=== PATIENT | female | born 1945 | race Caucasian/White ===

== ENCOUNTER 2022-03-12 07:26 | Emergency (ER) | payer OTHER, SELFPAY ==
[2022-03-12 07:31] VITALS: BP 159/79; PULSE 60; RESP 16; TEMP 36.5; O2SAT 100; BMI 24.1
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
[2022-03-12 08:53] VITALS: BP 166/82; PULSE 65; RESP 16; O2SAT 99
[2022-03-12 10:06] VITALS: BP 132/72; PULSE 78; O2SAT 98
== END 2022-03-12 10:08 | disposition home or self-care (01) ==
PROVIDERS: Emergency Provider Family Medicine; PCP Nurse Practitioner Family
DX: M54.2 Cervicalgia (principal); V48.0XXA Car driver injured in noncollision transport accident in nontraffic accident, initial encounter
CPT/HCPCS: 70450; 72125; 99284

== ENCOUNTER 2022-07-31 04:29 | Emergency (ER) | payer OTHER, SELFPAY ==
[2022-07-31 04:38] VITALS: BP 180/101; PULSE 86; RESP 16; TEMP 36.6; O2SAT 96; BMI 26.6
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
[2022-07-31] MEDS: ketorolac 30 mg/mL INJ IM (04:47)
[2022-07-31] MEDS: methocarbamol 750 mg Tablet PO (04:47)
--- NOTE | 2022-07-31 08:14 | DCPLANNER ---
Addendum entered by Judy Walden 08/14/22 17:50: Patient had follow up appointment with ortho - patient did attend appointment. Addendum entered by Judy Walden 07/31/22 14:00: Patient has a follow up appointment scheduled for August at 3:[address] Oliver at ortho. Clinic will call patient with appointment information. Original Note: web content manager had message to schedule a follow up appointment for patient with ortho. web content manager sent patients information to the front office staff at ortho. Patients information will be printed and reviewed. Clinic will call patient with appointment information.
== END 2022-07-31 05:13 | disposition home or self-care (01) ==
PROVIDERS: Emergency Provider Emergency Medicine; PCP Nurse Practitioner Family
DX: M54.2 Cervicalgia (principal)
CPT/HCPCS: 96372; 99284; J1885

== ENCOUNTER → 2022-08-02 15:33 | Outpatient (BNVA) | payer OTHER, SELFPAY | PROVIDERS: PCP Nurse Practitioner Family; Referring Provider Emergency Medicine; Visit Provider Orthopaedic Surgery | DX: M47.22 Other spondylosis with radiculopathy, cervical region (principal) | CPT/HCPCS: 72050 ==

== ENCOUNTER 2022-09-05 09:31 | Outpatient (CLI) | payer OTHER, SELFPAY ==
--- NOTE | 2022-09-05 10:15 | MR_ITS ---
WS: [id number] MRI CERVICAL SPINE NONCONTRAST TECHNIQUE: Sagittal T1, T2 and STIR imaging. Axial T2, gradient, and fiesta imaging. CLINICAL INFORMATION: pain FINDINGS: Straightening of the normal cervical lordosis. Disc osteophyte complex with slight retrolisthesis at C5-C6 with moderate central canal stenosis and indentation RIGHT ventral cervical cord. Tiny amount o f myelomalacia in the cervical cord at this level. Cord signal is otherwise normal. C2-C3: Normal. C3-C4: Slight retrolisthesis. Mild disc osteophytic ridging. Mild facet arthropathy. Mild bilateral f oraminal narrowing. C4-C5: Moderate RIGHT facet arthropathy. Spinal canal is patent. Mild RIGHT foraminal narrowing. C5-C6: Disc osteophyte complex with slight retrolisthesis. Impingement on the RIGHT ventral cervical cord with moderate central canal stenosis. Tiny amount of myelomalacia in the cervical cord at this l evel. Moderate to severe bilateral bony foraminal narrowing with moderate facet arthropathy and uncov ertebral joint hypertrophy. C6-C7: Tiny shallow central protrusion. Mild central canal stenosis. Moderate RIGHT facet arthropathy . Foramen are patent. C7-T1: Normal. Small RIGHT thyroid nodule measuring 12 mm. MR/MR cervical spin wo con* [id number] IMPRESSION: 1. Straightening of the normal cervical lordosis. 2. Central disc osteophyte protrusion C5-C6 with slight retrolisthesis. Indent ation RIGHT ventral cervical cord with moderate central canal stenosis. Tiny am ount of myelomalacia in the cervical cord at this level. 3. Mild central canal stenosis C6-C7. 4. Severe bilateral bony foraminal narrowing C5-C6. 5. Moderate to advanced facet arthropathy RIGHT C4-C5 and RIGHT C6-C7.
== END 2022-09-05 09:32 | disposition home or self-care (01) ==
LOC: RAD 09:37
PROVIDERS: PCP Nurse Practitioner Family; Visit Provider Orthopaedic Surgery
DX: M50.222 Other cervical disc displacement at C5-C6 level (principal); M48.02 Spinal stenosis, cervical region; M12.9 Arthropathy, unspecified
CPT/HCPCS: 72141

== ENCOUNTER 2025-02-17 08:19 | Emergency (ER) | payer SELFPAY ==
[2025-02-17 08:34] VITALS: BP 179/92; PULSE 84; RESP 18; TEMP 36.7; O2SAT 98; BMI 29.1
[2025-02-17 09:04] LABS: Glucose Urine UA 3+ (Normal); Nitrate Urine Negative (Negative); Specific Gravity, Urine 1.012 (1.005-1.030)
[2025-02-17 09:06] LABS: Add Urine Microscopic? YES
[2025-02-17 09:09] LABS: Hematocrit 46.7 % (36-47); Hemoglobin 15.20 g/dL (11.27-16.99); Mean Corpuscular HGB Conc 32.5 g/dL (30-55); Mean Corpuscular Hemoglobin 28.6 pg (27-33); Mean Corpuscular Volume 87.9 fl (85-98); Nucleated Red Blood Cells % 0 %; Platelet Count 245 10^3/cmm (157-399); Red Blood Count 5.31 10^6/uL (3.85-5.65); White Blood Count 6.85 10^3/uL (3.29-11.43)
[2025-02-17 09:24] LABS: Alanine Aminotransferase 56 U/L (0-33); Albumin Level 4.2 g/dL (3.5-5.2); Alkaline Phosphatase 110 U/L (35-105); Anion Gap 17.2 (5-19); Aspartate Amino Transferase 74 U/L (0-32); Blood Urea Nitrogen 13 mg/dL (8-23); Calcium 9.7 mg/dL (8.5-10.5); Carbon Dioxide 24 mmol/L (22-29); Chloride 99 mmol/L (98-107); Creatinine Clr Calc Pharmacy 58.3946; Globulin 3.4 g/dL (1.3-4.6); Glucose 318 mg/dL (65-115); Osmolality Calculated 294 mOsm/kg (285-295); Potassium 4.2 mmol/L (3.5-5.1); Sodium 136 mmol/L (136-145); Total Protein 7.6 g/dL (6.6-8.7)
--- NOTE | 2025-02-17 09:34 | ED_ITS ---
HPI - Female Genitourinary 2 General: Chief complaint: Urogenital-Female Stated complaint: High BS cha when pees feels like blisters Time Seen by Provider: 02/17/25 08:22 History of Present Illness: 79-year-old female presents emergency ro om complaining of burning in the genital area. She had had some itching so she started applying vinegar to the interlabial area and now it is reddened and burning and inflamed Related Data Previous Rx's ?Medication ?Instructions ?Recorded amoxicillin 875 mg-potassium 1 tab PO BID 10 days #20 tabs 04/11/23 clavulanate 125 mg tablet znysyqpliugvxfd-qmpggdxvqrfofvi-ZO 7.5 ml PO Q6H PRN c old symptoms 04/11/23 2 mg-30 mg-10 mg/5 mL oral syrup #160 mL (Bromfed DM) prednisone 10 mg tablet 30 mg (3 x 10 mg) PO DAILY 5 days 04/11/23 #15 tabs Allergies Allergy/AdvReac Type Severity Reaction Status Date / Time No Known Allergies Allergy Verified 04/11/23 09:14 Review of Systems 2 : Reports: dysuria and genital pruritis PFSH ED 2 PFSH: Medical History (Updated 02/17/25 @ 15:49 by Uche Griffin DO) No pertinent past medical history Social History Substance/Drug Use: never Physical Exam 2 : OTHER: Patient evaluated with nurse present. In her labial region markedly reddened erythematous. No open lesions. No vaginal drainage. Course 2 Vital Signs: Vital signs: Vital Signs Temperature 98.1 F 02/17/25 08:34 Pulse Rate 71 02/17/25 10:18 Respiratory Rate 18 02/17/25 08:34 Blood Pressure 151/92 02/17/25 10:18 Pulse Oximetry 98 02/17/25 10:18 Oxygen Delivery Me thod Room Air 02/17/25 08:34 MDM - Female Medical Decision Making Irritation interlabial ability was from the topical vinegar she has been putting on the genital mucosa. Encouraged her not to do this. Urine does not show any signs of infection. Glucose is markedly elevated patient is known to be diabetic. There is a prednisone listed on her medicine list but she is not currently taking it. Most recent glycosylated hemoglobin is 9.8 she needs to follow-up with her primary care doctor and have her diabetic control reviewed. Also need to follow-up with primary care regarding the elevated liver functions. Apply Desitin interlabial until lesions healed. Medical Records I reviewed the patient's medical records. Lab Data I reviewed the patient's lab results. 02/17/25 08:59 02/17/25 08:59 Laboratory Results WBC 6.85 10^3/uL (3.29-11.43) 02/17/25 08:59 RBC 5.31 10^6/uL (3.85-5.65) 02/17/25 08:59 Hgb 15.20 g/dL (11.27-16.99) 02/17/25 08:59 Hct 46.7 % (36-47) 02/17/25 08:59 MCV 87.9 fl (85-98) 02/17/25 08:59 MCH 28.6 pg (27-33) 02/17/25 08:59 MCHC 32.5 g/dL (30-55) 02/17/25 08:59 RDW 12.7 % (12.1-15.1) 02/17/25 08:59 Plt Count 245 10^3/cmm (157-399) 02/17/25 08:59 MPV 10.8 fL (7.4-10.4) H 02/17/25 08:59 Neut % (Auto) 74.3 % 02/17/25 08:59 Lymph % (Auto) 17.8 % 02/17/25 08:59 [place] % (Auto) 6.3 % 02/17/25 08:59 Eos % (Auto) 0.6 % 02/17/25 08:59 Baso % (Auto) 0.6 % 02/17/25 08:59 Neut # (Auto) 5.09 10^3/uL (1.8-7.7) 02/17/25 08:59 Lymph # (Auto) 1.2 10^3/uL (0.8-4.8) 02/17/25 08:59 [place] # (Auto) 0.4 10^3/uL (0.2-0.9) 02/17/25 08:59 Eos # (Auto) 0.0 10^3/uL (0.0-0.8) 02/17/25 08:59 Baso # (Auto) 0.0 10^3/uL (0.0-0.1) 02/17/25 08:59 Nucleated RBC % (auto) 0 % 02/17/25 08:59 Nucleated RBCs # 0.0 /100WBC 02/17/25 08:59 Sodium 136 mmol/L (136-145) 02/17/25 08:59 Potassium 4.2 mmol/L (3.5-5.1) 02/17/25 08:59 Chloride 99 mmol/L (98-107) 02/17/25 08:59 Carbon Dioxide 24 mmol/L (22-29) 02/17/25 08:59 Anion Gap 17.2 (5-19) 02/17/25 08:59 BUN 13 mg/dL (8-23) 02/17/25 08:59 Creatinine 0.6 mg/dL (0.5-0.9) 02/17/25 08:59 GFR Calculation Not Reportable 02/17/25 08:59 Glucose 318 mg/dL (65-115) H 02/17/25 08:59 POC Glucose 347 mg/dL (70-110) H 02/17/25 08:36 Calculated Osmolality 294 mOsm/kg (285-295) 02/17/25 08:59 Calcium 9.7 mg/dL (8.5-10.5) 02/17/25 08:59 Total Bilirubin 0.7 mg/dL (0.15-1.2) 02/17/25 08:59 AST 74 U/L (0-32) H 02/17/25 08:59 ALT 56 U/L (0-33) H 02/17/25 08:59 Alkaline Phosphatase 110 U/L (35-105) H 02/17/25 08:59 Total Protein 7.6 g/dL (6.6-8.7) 02/17/25 08:59 Albumin 4.2 g/dL (3.5-5.2) 02/17/25 08:59 Globulin 3.4 g/dL (1.3-4.6) 02/17/25 08:59 Urine Color Yellow (Yellow) 02/17/25 08:55 Urine Appearance Clear (CLEAR) 02/17/25 08:55 Urine pH 5.5 (5-7) 02/17/25 08:55 Ur Specific [place] 1.012 (1.005-1.030) 02/17/25 08:55 Urine Protein Negative (Negative) 02/17/25 08:55 Urine Glucose (UA) 3+ (Normal) H 02/17/25 08:55 Urine Ketones Negative (Negative) 02/17/25 08:55 Urine Blood Negative (Negative) 02/17/25 08:55 Urine Nitrate Negative (Negative) 02/17/25 08:55 Urine Bilirubin Negative (Negative) 02/17/25 08:55 Urine Urobilinogen 0.2 mg/dL (Negative) 02/17/25 08:55 Ur Leukocyte Esterase Negative (Negative) 02/17/25 08:55 Urine RBC 0-2 /hpf (0-2) 02/17/25 08:55 Urine WBC 0-5 /hpf (0-5) 02/17/25 08:55 Ur Squamous Epith Cells 0-5 /hpf (0-5) 02/17/25 08:55 Amorphous Sediment Not Reportable 02/17/25 08:55 Urine Bacteria None seen /hpf (NONE) 02/17/25 08:55 Hyaline Casts 0-4 /lpf H 02/17/25 08:55 No radiology studies performed this visit Discharge Plan Discharge Patient Disposition: Home Clinical Impression: Chemical dermatitis, Elevated liver enzymes, Poorly controlled diabetes mellitus Condition: Stable Prescriptions: No Action amoxicillin-pot clavulanate 875-125 mg tablet 1 tab PO BID 10 Days Qty: 20 0RF xihygzmftsmzzxv-gfrpqbbrf-GE [Bromfed DM] 2-30-10 mg/5 mL syrup 7.5 ml PO Q6H PRN (Reason: cold symptoms) Qty: 160 0RF prednisone 10 mg tablet 30 mg PO DAILY 5 Days Qty: 15 0RF Discharge Orders: Discharge ED (Routine); Ordered 02/17/25 Ordered By: Uche Griffin Referrals: Елена Cortez [Primary Care Provider, Family Practice] Discharge Diet: Usual diet Discharge Activity: Resume usual activity Patient Instructions: Opioid Safety, Pain Management, Patient Portal & Adriel Instructions Activity Restrictions/Additional Instructions: Thank you for choosing [facility] for your healthcare needs today. It is very important that you follow up as instructed or that you return to the Emergency Department should you have concerns or if your condition changes or worsens in any way. Emergency department visits are focused on emergent conditions, in some cases you may require further evaluation on an outpatient basis. You were seen in the emergency room with irritation to the genital area. The irritation to the genitals is due to the vinegar that was applied. You should stop using any vinegar to that area that is quite sensitive. Would recommend applying Desitin zrkc-wjp-bhsujpu to the area and washing with warm water twice daily. Your urine did not show any signs of infection. Your liver enzymes are mildly elevated you should follow this up with your primary care doctor. (Please note that included in your discharge packet is information concerning opioid safety and pain management. This information is given to all patients were discharged from the ER regardless of their discharge diagnosis or the medicines they usually take or are prescribed.) Print Language: Divehi Coding Level of Care Code ED Maintenance Services Dispatcher for Robert Edwards
[2025-02-17 10:01] VITALS: BP 151/92; PULSE 76; O2SAT 98
[2025-02-17 10:18] VITALS: BP 151/92; PULSE 71; O2SAT 98
== END 2025-02-17 10:19 | disposition home or self-care (01) ==
PROVIDERS: Emergency Provider Family Medicine; PCP Nurse Practitioner Family
DX: L24.5 Irritant contact dermatitis due to other chemical products (principal); E11.65 Type 2 diabetes mellitus with hyperglycemia; R74.01 Elevation of levels of liver transaminase levels
CPT/HCPCS: 36415; 36416; 80053; 81001; 82962; 85025; 99283